=== PATIENT | male | born 1995 | race Caucasian/White ===

== ENCOUNTER 2017-06-06 07:01 | Day surgery (SDC) | payer OTHER ==
[2017-06-05 10:54] VITALS: BMI 28.2
[2017-06-06] MEDS ORDERED: Oxymetazoline HCl 0.05% ( 15 ML ) ONE ×2 (07:21→08:18)
[2017-06-06] MEDS ORDERED: Midazolam HCl 2 mg/2 ml Vial ONE (08:14)
[2017-06-06] MEDS ORDERED: Fentanyl 100 MCG/2 ML VIAL ONE ×2 (08:14→09:46)
[2017-06-06] MEDS ORDERED: Lidocaine 2% w/Epinephrine 1:200K 20 ML VIAL ONE (08:18)
[2017-06-06] MEDS ORDERED: Lidocaine 1% w/Epinephrine 1:200K 30 ML VIAL ONE (08:21)
[2017-06-06] MEDS ORDERED: Lidocaine 1% PF 5 ML VIAL ONE (08:32)
[2017-06-06] MEDS ORDERED: Dexamethasone 20 MG/5 ML VIAL ONE (08:32)
[2017-06-06] MEDS ORDERED: Propofol 200 MG/20 ML VIAL ONE (08:32)
[2017-06-06] MEDS ORDERED: Ondansetron HCl/PF 4 MG/2 ML Vial ONE (08:32)
[2017-06-06] MEDS ORDERED: Glycopyrrolate 0.2 MG/ML 5 ML SYRINGE ONE (08:32)
--- NOTE | 2017-06-06 09:32 | OP ---
PREOPERATIVE DIAGNOSES: 1. Chronic sinusitis and recurrent sinusitis. 2. Deviated septum, hypertrophic inferior turbinates. POSTOPERATIVE DIAGNOSES: 1. Chronic sinusitis and recurrent sinusitis. 2. Deviated septum, hypertrophic inferior turbinates. PROCEDURES PERFORMED: 1. Bilateral nasal endoscopy with maxillary antrostomy. 2. Bilateral nasal endoscopy with total ethmoidectomy. 3. Bilateral nasal endoscopy with frontal sinusotomy. 4. Bilateral nasal endoscopy with sphenoidotomy. 5. Bilateral nasal endoscopy with submucosal resection of inferior turbinates and septoplasty, and also right nasal endoscopy with resection of alpesh bullosa. PROCEDURE IN DETAIL: After consent was obtained, the patient was identified, brought to the operati ng room, and placed on the operating room table in the supine position. Consent was obtained, notif lynne the patient of the possibility of additional infections, bleeding, brain injury, and eye/orbita l injury. The patient was placed on the operating room table, and general endotracheal anesthesia and intravenous access was obtained. The patient was then positioned, prepped and draped for endosc opic sinus surgery. Nasal preparation included trimming nasal vestibular hairs and spraying in topi leena Afrin. We then placed Afrin topical solution on nasal pledgets and strategically located them i ntranasally. The perinasal mucosa was injected with 1% lidocaine with 1:100,000 epinephrine in the submucoperichondrial plane of the septum, lateral nasal wall, and anterior to the uncinate. The pat ient was then prepped and draped in a sterile fashion and positioned for endoscopic sinus surgery. (Maxillary antrostomy) The uncinate was then identified and the extent of the uncinate was appreciated by out-fracturing the uncinate with the ball-tip probe. We then used the sickle blade t o disarticulate the uncinate from the lateral nasal wall. This was then removed with straight bitin g and upbiting punches with the remaining shrouds of mucosa and bony septum removed with the micro-d ebrider. The natural os of the maxillary sinus was then identified and enlarged with the maxillary punches and back biting forceps. (Total ethmoidectomy) The anterior face of the ethmoid bulla was entered and with the micro-debrider, dissection continued posteriorly to the ground lamella. The limits of dissection in cluded the insertion of the middle turbinate, medial orbital wall, and base of skull. We similarly identified the frontal recess and removed shrouds of bone and debris in that region to obtain patenc y into the agger nasi region and frontal recess. We then entered the ground lamella and its anteroi nferior aspect and proceeded posteriorly, opening the posterior ethmoid air-cell system. Again, the limits of dissection included the base of skull and medial orbital wall. (Frontal sinusotomy) With the 0-degree endoscope, the patient underwent systematic nasal endoscopy. There were no suspic ious internasal masses or lesions identified. We then focused our attention to the osteomeatal comp sandra region under the middle turbinate. (Sphenoidotomy) The anterior face of the sphenoid was identified and entered in its extreme anteroinferior aspect. A sphenoid punch was then used to enlarge the sphenoidotomy and no injury to the optic nerve or internal carotid artery occurred. (Alpesh Bullosa) The alpesh bullosa was identified and entered with a sickle blade. The lateral aspect of the alpesh bullosa was meticulously resected while leaving the medial most aspect to form the new middle turbinate. Attention was made not to violate the mucosa. The straight bitin g punches and micro-debrider were used to remove shrouds of mucosa and bony debris. (Outfracture \T\ Cautery of the Inferior Turbinates) The inferior turbinates were visualized with a 0-degree endoscope and outfractured with a Donovan elevator. The inferior medial aspect was cauterized with the electrocaute ry. Hemostasis was obtained . After adequate airway was established, we turned our attention to th e contralateral side and used a similar procedure. Again, a Donovan elevator was used to outfracture inferior turbinates under endoscopic visualization. With a suction cautery, the free inferior media l aspect was cauterized under direct visualization along the length of the inferior turbinate. At this point, we then turned our attention to the contralateral side and proceeded with endoscopic sinus surgery. At the completion of the case, Rice keel splints were placed in the ethmoid cavities after the ethmoidectomy. There were no complications. The patient tolerated the procedure well and was discharged to the recovery room in stable condition prior to return to the preoperativ e Day Stay with ultimate discharge home. Prescriptions for pain medication and antibiotics were pro vided. The patient received intramuscular Depo-Medrol during the case.
== END 2017-06-06 11:23 | disposition home or self-care (01) ==
LOC: SDC 07:01
PROVIDERS: ATTEND Specialist
PROC: 09BS8ZZ Excision of Right Frontal Sinus, Via Natural or Artificial Opening Endoscopic (ICD-10-PCS; principal; 2017-06-06)
PROC: 09TL8ZZ Resection of Nasal Turbinate, Via Natural or Artificial Opening Endoscopic (ICD-10-PCS; principal; 2017-06-06)
PROC: 09CX8ZZ Extirpation of Matter from Left Sphenoid Sinus, Via Natural or Artificial Opening Endoscopic (ICD-10-PCS; principal; 2017-06-06)
PROC: 09BV8ZZ Excision of Left Ethmoid Sinus, Via Natural or Artificial Opening Endoscopic (ICD-10-PCS; principal; 2017-06-06)
PROC: 09BT8ZZ Excision of Left Frontal Sinus, Via Natural or Artificial Opening Endoscopic (ICD-10-PCS; principal; 2017-06-06)
PROC: 09BU8ZZ Excision of Right Ethmoid Sinus, Via Natural or Artificial Opening Endoscopic (ICD-10-PCS; principal; 2017-06-06)
PROC: 099R8ZZ Drainage of Left Maxillary Sinus, Via Natural or Artificial Opening Endoscopic (ICD-10-PCS; principal; 2017-06-06)
PROC: 099Q8ZZ Drainage of Right Maxillary Sinus, Via Natural or Artificial Opening Endoscopic (ICD-10-PCS; principal; 2017-06-06)
PROC: 09CW8ZZ Extirpation of Matter from Right Sphenoid Sinus, Via Natural or Artificial Opening Endoscopic (ICD-10-PCS; principal; 2017-06-06)
DX: J32.9 Chronic sinusitis, unspecified (principal); J34.2 Deviated nasal septum; J34.3 Hypertrophy of nasal turbinates; F32.9 Major depressive disorder, single episode, unspecified; F41.9 Anxiety disorder, unspecified; F90.0 Attention-deficit hyperactivity disorder, predominantly inattentive type; Z79.899 Other long term (current) drug therapy; Z90.89 Acquired absence of other organs
CPT/HCPCS: 96374; J0131; J1100; J2001; J2250; J2405; J2704; J3010